=== PATIENT | female | born 2000 | race Caucasian/White ===

== ENCOUNTER 2022-10-12 09:19 | Emergency (ER) | payer BC, SELFPAY ==
[2022-10-12 09:30] VITALS: BP 146/89; PULSE 100; RESP 20; TEMP 36.8; O2SAT 98
--- NOTE | 2022-10-12 09:45 | ED.GENADULT ---
HPI - General Adult General Stated complaint: sore throat Source: patient Mode of arrival: ambulatory Limitations: no limitations History of Present Illness HPI narrative: Patient presents for evaluation of sore throat for the last 5 days. She further endorses fever, chills, and nausea. No vomiting, diarrhea, cough. She feels like she has strep throat. She has had strep in the past. She had the flu about two weeks ago. Her mother also recently had influenza. Denies other sick contacts. She does not smoke. No additional complaints or concerns. Related Data Allergies Allergy/AdvReac Type Severity Reaction Status Date / Time No Known Allergies Allergy Verified 10/12/22 09:44 Review of Systems Review of Systems: CONSTITUTIONAL: Reports fever and chills. EYES: Denies visual changes, redness, or discharge. ENT: Reports sore Denies rhinorrhea, congestion, or otalgia. CARDIOVASCULAR: Denies chest pain, palpitations, or edema. RESPIRATORY: Denies cough or dyspnea. GASTROINTESTINAL: Repots nausea. Denies abdominal pain,vomiting, or diarrhea. GENITOURINARY: Denies dysuria or hematuria. SKIN: Denies rash or itching. MUSCULOSKELETAL: Denies back pain, joint pain, or myalgia. NEUROLOGIC: Denies headache, numbness, dizziness, or weakness. PSYCHIATRIC: Denies anxiety or depression. PMFSH Past Medical History Medical History No pertinent past medical history Surgical History Surgical History No pertinent past surgical history Family History Family History Mother Family history non-contributory Social History Social History Smoking status: Never smoker Gender identity (if verbalized by the patient): Female Spiritual care concerns: No Exam Narrative: GENERAL: Well-appearing, well-nourished, and in no acute distress. HEAD: Normocephalic, atraumatic. EYES: PERRLA and EOMI. ENT: Nares clear, no rhinorrhea or epistaxis. Mucous membranes moist. Posterior pharyngeal erythema with exudate. Uvula is midlined. Bilateral TMs pearly read nonbulging NECK: Supple. No adenopathy or masses. No carotid bruits or JVD CHEST: Clear to auscultation. No respiratory distress. No wheezes rales or rhonchi HEART: Regular rate and rhythm. No murmur heard. Normal peripheral pulses. ABDOMEN: Soft, nontender, nondistended, normal active bowel sounds. EXTREMITIES: Normal range of motion. No edema. SKIN: Warm, dry, no rash. NEURO: No focal deficits. Alert and oriented x3. PSYCH: Normal mood and affect. Course Course Emergency Course: This is a 21-year-old female who presented for evaluation of sick symptoms. Strep culture was obtained. Unfortunately we do not have rapid testing. Will initiate therapy with amoxicillin. Increase hydration. OTC agents as needed for symptom management. Follow up outpatient for further evaluation and treatment and go to ER for difficulty breathing or swallowing. Pt in agreement with plan of care. Level of Care: Express Care Visit Vital Signs Vital signs: Vital Signs Temperature 36.8 C 10/12/22 09:30 Pulse Rate 100 10/12/22 09:30 Respiratory Rate 20 10/12/22 09:30 Blood Pressure 146/89 H 10/12/22 09:30 Pulse Oximetry 98 10/12/22 09:30 Oxygen Delivery Room Air 10/12/22 09:30 Temperature 36.8 C 10/12/22 09:30 Pulse Rate 100 10/12/22 09:30 Respiratory Rate 20 10/12/22 09:30 Blood Pressure 146/89 H 10/12/22 09:30 Pulse Oximetry 98 10/12/22 09:30 Oxygen Delivery Room Air 10/12/22 09:30 Medical Decision Making Vital Signs Vital Signs: Vital Signs Temperature 36.8 C 10/12/22 09:30 Pulse Rate 100 10/12/22 09:30 Respiratory Rate 20 10/12/22 09:30 Blood Pressure 146/89 H 10/12/22 09:30 Pulse Oximetry
== END 2022-10-12 09:46 | disposition home or self-care (01) ==
PROVIDERS: Emergency Provider Nurse Practitioner
DX: J02.9 Acute pharyngitis, unspecified (principal)
CPT/HCPCS: 87081; 99213; G0463